=== PATIENT | male | born 1955 | race Caucasian/White ===

== ENCOUNTER 2016-12-13 01:07 | Emergency (ER) | payer MEDICAID ==
[2016-12-13 01:08] VITALS: BMI 34.9
[2016-12-13] MEDS ORDERED: OXYCODONE HCL 5 MG TABLET PO ONE (01:28)
--- NOTE | 2016-12-13 01:30 | EDPRACDOC ---
- General Information Chief Complaint: Ankle Pain Stated Complaint: FALL/RT ANKLE PAIN Time Seen by Provider: 12/13/16 01:25 Home Medications: Home Medications Oxycodone Immediate Release [Oxycodone Immediate Release (OxyIR)] 5 mg PO Q6H PRN #7 tab 04/21/14 Lisinopril [Prinivil] 5 mg PO DAILY 07/10/15 Oxycodone Immediate Release [Oxy-Ir] 5 mg PO Q6H PRN #8 tab 07/11/15 Diazepam [Valium] 5 mg PO TID #30 tablet 12/13/16 Oxycodone HCl/Acetaminophen [Percocet 10-325 mg Tablet] 1 each PO Q4 #30 tablet 12/13/16 Allergies/Adverse Reactions: Allergies Allergy/AdvReac Type Severity Reaction Status Date / Time celecoxib [From Celebrex] Allergy Anaphylaxis Verified 07/10/15 23:43 * - History of Present Illness HPI: PATIENT FELL AND TWISTED RIGHT ANKLE. STATES HIS KNEE JUST GAVE WAY. STATES HE DID NOT PASS OUT. NO LOC. NO HEAD OR NECK PAIN. HX OF PRIOR FRACTURE Ankle Problem Location: Reports: Right, Medial Mechanism: Reports: Eversion Circumstances: Reports: Fall Tetanus Up To Date?: Yes Able to Bear Weight: No Pain Severity: Reports: Moderate Associated Signs & Symptoms: Reports: Bruising, Swelling ED Past Medical History - History Reviewed Yes Nurses notes reviewed and agree except as marked Travel Outside of [place] in the Last 3 Months?: No - Patient Medical History Cardiac History: Reports: Hypertension Additional Past Medical History: Chronic Back Pain Surgical History: Reports: Other (BACK) - Social Medical History Smoking Status: Never smoker Lives With: Family Lives In: Home EDM Review of Systems - Review of Systems ROS Negative Except as Marked: Yes All systems reviewed and were negative except as marked Constitutional: No Symptoms Reported. negative: Fever, Chills, Weakness, Fatigue, Loss of Appetite Eyes: No Symptoms Reported. negative: Redness, Blurred Vision, Double Vision, Discharge, Pain, Light Sensitive, Photophobia Ears: No Symptoms Reported. negative: Pain, Hearing Loss, Drainage, Ear Pulling Throat: No Symptoms Reported. negative: Pain, Swelling Nose: No Symptoms Reported. negative: Congestion, Bleeding, Discharge, Injection, Swelling, Deformity, Ecchymosis, Tender, Abrasion, Laceration Mouth: No Symptoms Reported. negative: Pain, Drooling Respiratory: No Symptoms Reported. negative: Cough, Brassy Cough, Barky Cough, Shortness of Breath, Wheezing, Hemoptysis Cardiovascular: No Symptoms Reported. negative: Chest Pain, Palpitations, Syncope, Edema, Orthopnea, PND, Skin Mottling, Cyanosis Gastrointestinal: No Symptoms Reported. negative: Pain, Constipation, Nausea, Vomiting, Diarrhea, Melena, Formula Intolerance Genitourinary: No Symptoms Reported. negative: Dysuria, Hematuria, Frequency, Discharge, Bleeding, Testicular Pain, Neurological: No Symptoms Reported. negative: Headache, Dizziness, Seizure, Numbness, Weakness, Speech Difficulty, Gait Difficulty Musculoskeletal: Ankle. negative: Arm, Back, Chestwall, Elbow, Forearm, Femur, Foot, Hand, Hip, Knee, Leg, Neck, Pelvis, Ribs, Shoulder, Wrist Integumentary: No Symptoms Reported. negative: Itching, Rash, Bruising, Wound Allergic/Immunologic: No Symptoms Reported. negative: Hives, Itching Hematologic: No Symptoms Reported. negative: Lymphadenopathy, Easy Bruising, Easy Bleeding Endocrine: No Symptoms Reported. negative: Weight Gain, Weight Loss Psychiatric: No Symptoms Reported. negative: Anxiety, Depression, Hallucinations, Insomnia, Suicidal - Physical Exam Constitutional: Alert (Awake), Distress (MOERATE) Oriented to: Time, Person, Place Last recorded Vital Signs: Oxygen Pulse Oxygen Saturation O2 Device Oxygen Flow Rate Fraction of Inspired Oxygen ( FIO2) - HEENT Head: Normal ( normocephalic) Eye Exam: Normal (PERRL, EOMI, Sclera white) Oropharynx: Normal (Pharynx:Moist without exudate,Gums-no swelling) Tympanic Membrane: Normal ENT EAC: Normal TMJ: Normal Nose: No Symptoms Reported (septum midline) Neck: Normal (FROM, trachea at midline) - Respiratory/Cardiovascular Respiratory: Normal - CTA (BBS clear to auscultation without adventitious sounds ) Cardiovascular: Normal (RRR without murmur, gallop or rub) - GI Auscultation: Normal (NABS) Palpation: Normal (Soft,No rebound or guarding, non distended) Tenderness: Non tender Navarro's Sign: Negative - Bladder: Normal - Musculoskeletal Back: Normal (Non-Tender) Extremities: Other (SWELLING AND TENDERNESS JUST PROXIMAL TO MEDIAL MALLEOLUS RIGHT FOOT) - Integumentary Skin: Normal, Warm, Dry Lymphatics: Normal (no adenopathy) - Neurologic Memory Impaired: Normal Motor Function: Normal (Normal tone, Pulses 2+ No cyanosis or edema, FROM) Cranial Nerve: Normal (CN II-X11 intact sensation, strength 5/5) Cerebellar: Normal Mood Description: Normal Perception: Normal ED Procedures - Splinting 1st splint Location: RIGHT LEG Hand-Made Type: fiberglass Splint: posterior walking Pre-Proc Neuro Vasc Exam: normal Post-Proc Neuro Vasc Exam: normal Other Devices: Crutches 2nd splint Location: RIGHT ANKLE Hand-Made Type: fiberglass Splint: STIRRUP Pre-Proc Neuro Vasc Exam: normal Post-Proc Neuro Vasc Exam: normal Other Devices: Crutches Decision Time to Discharge: 02:02 - Departure Yes I personally saw and evaluated the patient. Disposition: Home Condition: Good Final Diagnosis: Trimalleolar fracture of ankle, closed Qualifiers: Encounter type: initial encounter Laterality: right Qualified Code(s): S82.851A - Displaced trimalleolar fracture of right lower leg, initial encounter for closed fracture Instructions: RICE: Routine Care for Injuries, Ankle Fracture (ED) Education/Counseling Given To: Patient Education/Counseling Given Regarding: Diagnosis, Treatment, Prognosis, Follow Up Referrals: None,No Provider [Primary Care Provider] - One Week David Mayo MD [Staff Physician] - One Week Prescriptions: Diazepam [Valium] 5 mg PO TID #30 tablet Oxycodone HCl/Acetaminophen [Percocet 10-325 mg Tablet] 1 each PO Q4 #30 tablet Additional Instructions: NO WEIGHT BEARING RIGHT FOOT
--- NOTE | 2016-12-13 01:59 | DIRPT ---
CLINICAL DATA: Status post fall, with right ankle pain. Initial encounter. EXAM: RIGHT ANKLE - COMPLETE 3+ VIEW COMPARISON: None. FINDINGS: There is a mildly displaced trimalleolar fracture, with lateral displacement of the distal fibular fragment, mild lateral displacement of the oblique medial malleolar fragment, and only minimal displacement of the posterior malleolar fragment. There is no evidence of talar dislocation. Mild lateral talar tilt is noted, with medial widening of the ankle mortise. Surrounding soft tissue swelling is noted. An os peroneum is seen. The subtalar joint is grossly unremarkable in appearance. IMPRESSION: 1. Mildly displaced trimalleolar fracture, with lateral displacement of the distal fibular fragment, mild lateral displacement of the oblique medial malleolar fragment, and only minimal displacement of the posterior malleolar fragment. Mild lateral talar tilt, with medial widening of the ankle mortise. 2. Os peroneum seen. Electronically Signed By: Jose Olmos M.D. On: 12/13/2016 01:57
[2016-12-13] MEDS ORDERED: HYDROmorphone 1 MG INJECTION ONE (02:01)
[2016-12-13] MEDS ORDERED: HYDROmorphone 1 MG INJECTION IM ONE (02:02)
[2016-12-13] MEDS ORDERED: DIAZEPAM 5 MG TAB PO ONE (02:48)
[2016-12-13 03:39] VITALS: BP 169/100; PULSE 76; TEMP 97.6
== END 2016-12-13 03:30 | disposition home or self-care (01) ==
LOC: ED 01:07
DX: S82.851A Displaced trimalleolar fracture of right lower leg, initial encounter for closed fracture (principal); X58.XXXA Exposure to other specified factors, initial encounter; Y93.9 Activity, unspecified
CPT/HCPCS: 29515; 73610; 96372; 99283; J1170; J3490

== ENCOUNTER 2016-12-23 10:40 | Day surgery (SDC) | payer MEDICAID ==
[~2016-12-23 10:40] MED LIST: DEXAMETHASONE 4 MG/ML VIAL IV ONE; FENTANYL 100 MCG/2 ML VIAL IV ONE; KETAMINE 50 MG/ML SYRINGE IV ONE; KETOROLAC TROMETH 30 MG/ML VIAL IM ONE; LIDOCAINE 100 MG PFS IV ONE; MIDAZOLAM 2 MG/2 ML VIAL IV ONE; MORPHINE 10 MG/ML INJECTION IM ONE; ONDANSETRON HCL 4 MG/2 ML VIAL IV ONE; PROPOFOL 200 MG/20 ML VIAL IV ONE
[2016-12-23] MEDS ORDERED: HYDROmorphone 1 MG INJECTION IV PRN ×2 (11:05)
[2016-12-23] MEDS ORDERED: PROMETHAZINE 25 MG/ML VIAL IV PRN ×2 (11:05)
[2016-12-23] MEDS ORDERED: ONDANSETRON HCL 4 MG/2 ML VIAL IV PRN (11:05)
[2016-12-23] MEDS ORDERED: MEPERIDINE 25 MG/ML TUBEX IV PRN (11:05)
[2016-12-23] MEDS ORDERED: FENTANYL 100 MCG/2 ML VIAL IV PRN (11:05)
[2016-12-23] MEDS ORDERED: ONDANSETRON HCL 4 MG ODT TAB PO PRN (11:05)
[2016-12-23] MEDS ORDERED: hydrALAZINE 20 MG/ML VIAL IV PRN (11:05)
[2016-12-23] MEDS ORDERED: LABETALOL 20 MG/4 ML SYRINGE IV PRN (11:05)
[2016-12-23] MEDS ORDERED: HYDROmorphone 1 MG INJECTION IV ONE (11:06)
[2016-12-23] MEDS ORDERED: BUPIVACAINE 0.25%-EPINEPHRINE 1:200,000 30 ML ONE (11:06)
--- NOTE | 2016-12-23 11:08 | SC.ANESPOS ---
[id number], Hemodynamically Stable, Pain Control Adequate Phase I & II Recovery Complete: Yes Apparent Anesthesia Complication: No : N - Vital Signs Blood Pressure: 151/89 Pulse: 97 Resp Rate: 20 O2 Sat: 95 Temp: 97.9 F
[2016-12-23] MEDS ORDERED: CEFAZOLIN 1 GM VIAL ONE ×2 (11:09)
--- NOTE | 2016-12-23 11:10 | HIM.ANES ---
Anesthesia Evaluation & Plan Diagnoses: DISPLACED TRIMALLEOLAR FRACTURE OF RIGHT LOWER LEG, INIT (12/23/16) - Focused Review of Systems Cardiac History: Yes: Hx Hypertension, Hx Cardiac Disorders, Hx Abnormal Cholesterol/Hyperlipidemia HEENT: No: Other HEENT Problems Respiratory: Yes: Hx Sleep Apnea Gastrointestinal: Yes: Hx Gastroesophageal Reflux Disease (No symptoms currently ), Hx Gastrointestinal Disorders, Hx Colonoscopy (AGE 56 POLYPECTOMY) Neurological/Musculoskeletal: Yes: Hx Back Pain, Hx Numbness, Tingling, Weakness in Arms & Legs (BLE/Hyperalgesia), Hx Neurological Disorders Other Neurological Problems: NEUROPATHY FROM KNEES DOWN.. PARASTHESIA BLE Psychological: No Hx Depression, Yes Hx Mental/Emotional Disorders HX Other Psyco/Soc Problems: INSOMNIA Blood/Autoimmune: Yes: Hx Anemia No: Hx AIDS, Hx Hepatitis (type) Smoking Status: Former smoker Hx Echocardiogram (date): Yes (12/17/16 EF 65%, MILD LVH, NO VALVE DISEASE) Hx Chest Xray (date): Yes (CT CHEST 12/16/16 MILD DEPENDANT ATELECTASIS) Surgical History: Yes: Appendectomy, Back (T12 REMOVAL 1991), Hip (BILATEAL HIP REPLACEMENT), Other (BACK) Other Surgical History: BILATERAL BIG TOE REMOVAL. FATTY TUMOR REMOVAL - Focused Physical Exam NPO since: after Midnight Mallampati: Class II Thyromental Distance: Greater than 3 Neck: Full Range of Motion Dental: Normal - no significant findings Cardiovascular/Chest: Normal Respiratory: Lungs clear Any problems with anesthesia, including nausea and vomiting?: No Any relatives with a history of Malignant Hyperthermia?: No Beta Law given (if appropriate): N/A Does the patient have a history of Motion Sickness-: No Other: Problem List Problem Status Onset Chronic hip pain Acute Drug reaction Acute Neuropathy Acute Trimalleolar fracture of ankle, closed Acute Allergies Allergy/AdvReac Type Severity Reaction Status Date / Time celecoxib [From Celebrex] Allergy Anaphylaxis Verified 12/22/16 18:00 * Home Medications Medication Instructions Recorded Last Taken Type Acetaminophen 650 mg PO Q4 PRN 12/22/16 Unknown History Clindamycin HCl [Cleocin HCl] 300 mg PO TID 12/22/16 Unknown History Famotidine 20 mg PO BID 12/22/16 Unknown History Furosemide [Lasix] 20 mg PO DAILY 12/22/16 Unknown History Hydralazine HCl 25 mg PO TID 12/22/16 Unknown History L.acidoph & Paracasei,B.lactis 1 each PO DAILY 12/22/16 Unknown History [Probiotic] Methocarbamol [Robaxin-750] 750 mg PO TID PRN 12/22/16 Unknown History Oxycodone HCl/Acetaminophen 1 tab PO Q4H PRN 12/22/16 Unknown History [Percocet 5-325 mg Tablet] Tamsulosin HCl [Flomax] 0.4 mg PO DAILY 12/22/16 Unknown History Height and Weight Patient's height 6 ft 5 in Patient's weight 300 lb BMI 34.9 - Anesthetic Plan Anesthesia Type: General ASA Class: 3 -: I have examined this patient and reviewed the medical record. The patient has been assessed prior to anesthesia. Risks and benefits of anesthesia and anesthetic technique options have been discussed and all questions answered. The patient accepts the risk and desires me to proceed with the planned anesthetic.
[2016-12-23] MEDS ORDERED: DIPHENHYDRAMINE 25 MG CAP PO PRN (11:32)
[2016-12-23] MEDS ORDERED: DIPHENHYDRAMINE 50 MG/ML VIAL IV PRN (11:32)
[2016-12-23] MEDS ORDERED: MAGNESIUM HYDROXIDE 30 ML BOTTLE PO PRN (11:32)
[2016-12-23] MEDS ORDERED: Aluminum;Magnesium;Simethicone 30 ML UDC PO PRN (11:32)
--- NOTE | 2016-12-23 11:38 | HIMOPRPT ---
DATE OF PROCEDURE: December 23, 2016 PREOPERATIVE DIAGNOSIS: Right trimalleolar ankle fracture dislocation POSTOPERATIVE DIAGNOSIS: Same. PROCEDURE: Open reduction and internal fixation of the right distal fibula and medial malleolus. FINDINGS: Fracture dislocation the right ankle with bony appearance of prior malunion verses chronic syndesmotic injury. Questionable neuroma involving the superficial peroneal nerve. SPECIMENS REMOVED: Portion of the distal superficial peroneal nerve sent for pathology. ESTIMATED BLOOD LOSS: 5 mL. ANESTHESIA: General. COMPLICATIONS: None. SURGEON: David Mayo M.D. VACUUM PAN TENDER: BECKY Mann TOURNIQUET TIME: 60 minutes at 250 mmHg. IMPLANTS: Include Nenzel very ax 4 hole distal fibula plate with 4-3.5 mm distal locking screws; 3-3.5 mm nonlocking screws proximally and 2-4.0 mm partially threaded cannulated screws medially.. SIGNIFICANT HISTORY, INDICATIONS, AND CONSENT: CAM is a 61-year-old male status post mechanical fall sustaining a right trimalleolar ankle fracture dislocation. Patient has been nonweightbearing with elevation and reports improvement in pain and swelling. Risks, benefits, and alternatives were discussed. With potential benefits of improved stabilization decreased likelihood of malunion, nonunion, and posttraumatic arthritis. Consent was obtained. OPERATION IN DETAIL: The patient was seen in the preop holding area. The right ankle was signed. Consent was reviewed. Questions were answered. H and P updated. SCD placed on the lower extremity. The patient was taken to the operating room, placed in supine position on the operating table. Anesthesia placed monitoring devices and performed LMA intubation. The right lower extremity was sterilely prepped and draped in usual orthopedic fashion, after tourniquet placed high on the right calf. A small bump was placed under the thigh in order to internally rotate the lower extremity. Time-out was performed. The patient received prophylactic antibiotics. Consensus was reached amongst participants in the OR suite. Esmarch was used to exsanguinate the limb. Tourniquet raised to 250 mmHg. Standard lateral approach to the distal fibula was made sharply through skin. Careful dissection deep was performed to identify the superficial peroneal nerve. With careful evaluation of the nerve there appeared to be a thickening of the distal portion consistent with possible neuroma. This bulbous and was sharply amputated and sent for pathology. Subperiosteal elevation with full-thickness anterior and posterior flaps were created subperiosteally to expose the fracture site, which was shortened and pushed laterally. The appearance of the distal fibula was questionable for prior malunion. After both fracture ends were cleaned of debris, we then performed an open reduction, with provisional fixation and found this to be an acceptable reduction on radiograph. Both AP and lateral views were used. Once this was reduced, we then provisionally placed an anterior to posterior lag screw and neutralization plate in standard fashion. With a neutralization plate in place, we initially fixed this with a bicortical screw proximally to bring the plate to the bone, and then fixed it distally with a unicortical locking screw. Again, radiographic confirmation of reduction was found to be acceptable and next, we began to place proximal and distal screws with a total of 4 locking distally and 3 nonlocking proximally. There were some degenerative changes near the syndesmotic ligaments consistent with possible old injury. Next, our attention was turned medially where a 4 cm longitudinal incision was made anteromedial about the ankle mortise. Sharp dissection was made through skin where the saphenous vein and nerve were identified and retracted. We then elevated soft tissue anteriorly and posteriorly off the subperiosteal bone. Fracture was identified and cleaned of debris with curettage and irrigation. An open reduction was performed and provisionally fixed with 2 guide pins from a medial to lateral direction in retrograde manner. Once this was found to be acceptably reduced restoring the mortise then reamed these and placed 55 mm 4.0 mm partially threaded cannulated screws. This reduced the fracture nicely. Mortise was found to be intact. We then stressed the syndesmosis with no obvious disruption of the syndesmotic ligaments and no gapping of the medial clear space. Implants again found to be in acceptable position on AP and lateral views. Our instruments were then removed. Incision site was thoroughly irrigated. A 0-Vicryl suture was used for deep closure to bring deep soft tissue over the plate. Tourniquet was released and hemostasis performed with Bovie cautery. A 2-0 Monocryl for subcutaneous closure and 3-0 nylon for skin. Sterile soft tissue dressing was placed. The patient was placed in a bulky posterior and stirrup splint, aroused by Anesthesia and taken to Postanesthesia Care Unit in stable condition. PLAN: The patient will be discharged home when okay with Anesthesia. Prescriptions will be given for p.r.n. pain, nausea, vomiting, and constipation. The patient will be nonweightbearing in the right lower extremity. Strict elevation was recommended while sitting. Early mobilization. Return to Clinic on postoperative day #10 for suture removal and wound check.
[2016-12-23] MEDS ORDERED: NALOXONE 0.4 MG/ML AMPULE IV SCH (12:00)
[2016-12-23] MEDS ORDERED: FENTANYL 100 MCG/2 ML VIAL ONE (14:01)
[2016-12-23] MEDS: FENTANYL 100 MCG/2 ML VIAL IV PRN ×2 (14:03→14:22)
[2016-12-23] MEDS: MORPHINE 2 MG/ML INJECTION IV PRN ×3 (15:11→20:12)
[2016-12-23] MEDS: CALCIUM CARBONATE + VITAMIN D 500 MG TAB PO SCH ×4 (15:44→17:11)
[2016-12-23] MEDS: PROBIOTIC BLEND TAB PO SCH (15:44)
[2016-12-23] MEDS: VITAMINS, MULTIPLE CAP PO SCH (15:44)
[2016-12-23] MEDS: CLINDAMYCIN 150 MG CAP PO SCH ×2 (15:45→21:21)
[2016-12-23] MEDS: hydrALAZINE 25 MG TAB PO SCH ×2 (15:45→21:21)
[2016-12-23] MEDS: SODIUM CHLORIDE 0.9% 3 ML FLUSH FLUSH SCH (15:47)
[2016-12-23] MEDS ORDERED: Vaccine Screening Complete SCH (16:00)
[2016-12-23] MEDS: Cefazolin 2gm/50 ml D5W 2 GM/50 ML RTU IV SCH (17:11)
[2016-12-23] MEDS: PANTOPRAZOLE 40 MG TAB PO SCH (17:11)
[2016-12-23] MEDS: ACETAMINOPHEN 325 MG/TAB TABLET PO PRN (17:16)
[2016-12-23] MEDS: FAMOTIDINE 20 MG TAB PO SCH (20:12)
[2016-12-23] MEDS: DOCUSATE-SENNA CONCENTRATE TAB PO SCH (20:12)
[2016-12-23] MEDS: OXYCODONE HCL 5 MG TABLET PO PRN (21:20)
[2016-12-23] MEDS: METHOCARBAMOL 500 MG TAB PO PRN (21:33)
[2016-12-24] MEDS: MORPHINE 2 MG/ML INJECTION IV PRN ×8 (00:29→20:19)
[2016-12-24] MEDS: ACETAMINOPHEN 325 MG/TAB TABLET PO PRN ×6 (00:29→22:32)
[2016-12-24] MEDS: OXYCODONE HCL 5 MG TABLET PO PRN ×6 (01:50→22:28)
[2016-12-24] MEDS: Cefazolin 2gm/50 ml D5W 2 GM/50 ML RTU IV SCH ×2 (02:10→09:54)
[2016-12-24] MEDS: SODIUM CHLORIDE 0.9% 3 ML FLUSH FLUSH SCH ×2 (04:10→18:36)
[2016-12-24] MEDS: METHOCARBAMOL 500 MG TAB PO PRN (05:20)
[2016-12-24] MEDS: CLINDAMYCIN 150 MG CAP PO SCH ×3 (05:46→20:31)
[2016-12-24] MEDS: hydrALAZINE 25 MG TAB PO SCH ×3 (05:46→20:31)
[2016-12-24] MEDS: PANTOPRAZOLE 40 MG TAB PO SCH ×2 (05:46→18:35)
[2016-12-24] MEDS ORDERED: FLU VACCINE (Afluria) 0.5 ML DOSE IM ONE (08:00)
--- NOTE | 2016-12-24 08:09 | PCM.ORTHBL ---
- Subjective Hospital Day #: 2 Post Op Day: 1 (S/P R ankle ORIF) Daily Assessment - Patient: Reports: Still having pain, Tolerating Regular Diet , Afebrile - Objective / Physical Exam Vital Signs: Temperature: 98.4 F (12/24/16 05:30) HR: 82 (12/24/16 05:30)RR: 20 (12/24/16 05: 30) BP: 145/69 (12/24/16 05:30)Pulse Ox: 97 (12/24/16 05:30) General: Alert, Oriented x3, Cooperative, No acute distress, Obese Musculoskeletal / Extremities: Splint in place, Dressing Clean/Dry/Intact, Swelling, Capillary Refill, Other (Compartments soft and compressible with passive ROM of toes without significant pain when distracted.) Neurological: Positive Sensation First Dorsal Web Space, Sensation to light touch intact, Extensor Hallicus Longus Intact, Flexor Hallicus Longus Intact Skin: Warm,Dry and Intact - Assessment and Plan (1) Trimalleolar fracture of ankle, closed Acute S82.853A - DISPLACED TRIMALLEOLAR FRACTURE OF UNSP LOWER LEG, INIT Present on Admission: Yes initial encounter right F S82.851A - Displaced trimalleolar fracture of right lower leg, initial encounter for closed fracture Comment/Plan: POD #1 s/p R ankle bi mal ORIF. Nurse notified of patient with increased pain this morning. No signs of active compartment syndrome at this time. Continue elevation and NWB RLE. Possible d/c home this afternoon if doing better with home health.
--- NOTE | 2016-12-24 08:11 | PCM.DCS92 ---
Discharge Disposition: Home Cognitive Discharge Status: Unimpaired Fuctional Discharge Status: Walker Assistance, Deconditioning, Post-op Weakness Diet at Discharge: As Tolerated Activity: Other (see below) (as tolerated. RUY RAMIREZ) Call Office For: Worsening Symptoms, Wound is Draining Pus, Fever over 101 F, Fever over 100.5, Wound is Painful, Wound is Red, Weight Gain (see below), Pain Uncontrolled By Meds, Other (See Details) Discontinue use of:: Alcohol, All Illegal Substances, All Types of Tobacco - DC Summary Notes Hospital Course Note:: Discharge summary on patient named ALVIN MENDOSA admitted to [facility] on by . Date of discharge is December 24, 2016. HPI: 61-year-old male status post mechanical fall sustaining a right trimalleolar ankle fracture dislocation. Hospital course: Patient was taken to the operating room on December 23, 2016 for open reduction internal fixation of right trimalleolar ankle fracture. Patient was transferred postoperatively to the floor with pain control being difficult for the 1st hour postoperatively. Patient was able to obtain adequate pain control after both IV and oral pain medication was administered. On postoperative day 1 was some concern by the nursing staff that the patient may have symptoms of compartment syndrome. Patient was urgently evaluated at bedside revealing compressible compartments anteriorly, laterally, and medially. Patient had minimal pain with passive stretch of the toes and ankle. Patient described a neuropathic type pain which he has chronically with diminished sensation throughout the foot and leg on a usual basis. Patient also reports history of multiple ankle fractures treated conservatively prior to this procedure. Patient with improved pain at bedside and agreeable to discharge home in the afternoon with pain improving. Operations-procedures: Right trimalleolar ankle fracture open reduction internal fixation-December 23, 2016. Disposition: Patient will be discharged home in the care of family. He will remain nonweightbearing right lower extremity. Strict right lower extremity elevation at heart level while sitting. Recommend aspirin 325 mg 1 tab p.o. every day times 14 days. Colace 100 mg p.o. b.i.d.; oxycodone 5 mg 1-2 tabs p.o. q.4 hours as needed for pain were provided at clinic. Return to clinic postop day 10 for suture removal and wound check. <David Mayo - Last Filed: 12/24/16 08:08> - Final/Secondary Discharge Diagnosis (1) Trimalleolar fracture of ankle, closed Acute S82.853A - DISPLACED TRIMALLEOLAR FRACTURE OF UNSP LOWER LEG, INIT Present on Admission: Yes initial encounter right F S82.851A - Displaced trimalleolar fracture of right lower leg, initial encounter for closed fracture Discharge Home Medication List Acetaminophen 650 mg PO Q4 PRN 12/22/16 [History Confirmed 12/23/16 Last Taken 12/22/16 10:00] Clindamycin HCl [Cleocin HCl] 300 mg PO TID 12/22/16 [History Confirmed Last Taken 12/22/16 21:00] Famotidine 20 mg PO BID 12/22/16 [History Confirmed 12/23/16 Last Taken 08:00] Furosemide [Lasix] 20 mg PO DAILY 12/22/16 [History Confirmed 12/23/16 Last Taken 12/22/16 10:00] Hydralazine HCl 25 mg PO TID 12/22/16 [History Confirmed 12/23/16 Last Taken 08:00] L.acidoph & Paracasei,B.lactis [Probiotic] 1 each PO DAILY 12/22/16 [History Confirmed 12/23/16 Last Taken 12/22/16 14:00] Methocarbamol [Robaxin-750] 750 mg PO TID PRN 12/22/16 [History Confirmed Last Taken 12/22/16 10:00] Oxycodone HCl/Acetaminophen [Percocet 5-325 mg Tablet] 1 tab PO Q4H PRN [History Confirmed 12/23/16 Last Taken 12/22/16 10:00] Tamsulosin HCl [Flomax] 0.4 mg PO DAILY 12/22/16 [History Confirmed 12/23/16 Last Taken 12/23/16 07:00] Oxycodone Immediate Release [Oxycodone Immediate Release (OxyIR)] 5 mg PO Q4H PRN #30 tablet 12/24/16 [Rx Last Taken Unknown] - DC Summary Notes Hospital Course Note:: Discharge summary on patient named ALVIN MENDOSA admitted to [facility] on by . Date of discharge is 12/25/2016 <Sudhakar Domingo - Last Filed: 12/25/16 10:01> Discharge Condition: Stable Physician Follow up/Referrals: David Mayo MD [Staff Physician] - Listed Time Home Medications/ New Prescriptions: New Oxycodone Immediate Release [Oxycodone Immediate Release (OxyIR)] 5 mg PO Q4H PRN #30 tablet PRN Reason: moderate to severe pain Continue Oxycodone HCl/Acetaminophen [Percocet 5-325 mg Tablet] 1 tab PO Q4H PRN PRN Reason: Pain Acetaminophen 650 mg PO Q4 PRN PRN Reason: Pain Methocarbamol [Robaxin-750] 750 mg PO TID PRN PRN Reason: Muscle Cramps Hydralazine HCl 25 mg PO TID Furosemide [Lasix] 20 mg PO DAILY Famotidine 20 mg PO BID Clindamycin HCl [Cleocin HCl] 300 mg PO TID Tamsulosin HCl [Flomax] 0.4 mg PO DAILY L.acidoph & Paracasei,B.lactis [Probiotic] 1 each PO DAILY Wound Care Surgical Site: Yes <David Mayo - Last Filed: 12/24/16 08:08> Medical Equipment (Order must still be written on paper): Walker Medication Instructions: Take Stool Softener, Rx Given at Clinic Continue Ice Packs/Ice Machine to Operative Area: Yes Activity as Tolerated: Yes Weight Bearing: None (Nonweightbearing right lower extremity) Current Dressing: Splint Dressing Care: Keep Wound Clean & Dry, Do Not Change Dressing <David Mayo - Last Filed: 12/24/16 08:08> - Physical Exam Vital Signs: Initial Vitals Temperature 98.0 F 12/23/16 11:05 Pulse Rate 89 12/23/16 11:05 Respiratory Rate 18 12/23/16 11:05 Blood Pressure 158/90 12/23/16 11:05 Pulse Oxygen Saturation 97 12/23/16 11:05 <David Mayo - Last Filed: 12/24/16 08:08> - Physical Exam Vital Signs: Initial Vitals Temperature 98.0 F 12/23/16 11:05 Pulse Rate 89 12/23/16 11:05 Respiratory Rate 18 12/23/16 11:05 Blood Pressure 158/90 12/23/16 11:05 Pulse Oxygen Saturation 97 12/23/16 11:05 <Sudhakar Domingo - Last Filed: 12/25/16 10:01>
[2016-12-24] MEDS: FUROSEMIDE 20 MG TAB PO SCH (08:16)
[2016-12-24] MEDS: TAMSULOSIN HCL 0.4 MG CAP PO SCH (08:16)
[2016-12-24] MEDS: FAMOTIDINE 20 MG TAB PO SCH ×2 (08:17→20:31)
[2016-12-24] MEDS: CALCIUM CARBONATE + VITAMIN D 500 MG TAB PO SCH ×2 (11:13→18:35)
[2016-12-24] MEDS: VITAMINS, MULTIPLE CAP PO SCH (11:13)
[2016-12-24] MEDS: PROBIOTIC BLEND TAB PO SCH (11:13)
[2016-12-24] MEDS: DOCUSATE-SENNA CONCENTRATE TAB PO SCH (20:31)
[2016-12-25] MEDS: MORPHINE 2 MG/ML INJECTION IV PRN ×4 (00:28→11:28)
[2016-12-25] MEDS: OXYCODONE HCL 5 MG TABLET PO PRN ×2 (05:37→10:00)
[2016-12-25] MEDS: ACETAMINOPHEN 325 MG/TAB TABLET PO PRN ×2 (05:38→10:00)
[2016-12-25] MEDS: hydrALAZINE 25 MG TAB PO SCH (05:39)
[2016-12-25] MEDS: CLINDAMYCIN 150 MG CAP PO SCH (05:42)
[2016-12-25] MEDS: SODIUM CHLORIDE 0.9% 3 ML FLUSH FLUSH SCH (05:44)
[2016-12-25] MEDS: PANTOPRAZOLE 40 MG TAB PO SCH (05:44)
[2016-12-25 06:57] VITALS: BP 175/98; PULSE 78; TEMP 97.7
[2016-12-25 06:59] VITALS: BMI 37.7
[2016-12-25] MEDS: FAMOTIDINE 20 MG TAB PO SCH (08:08)
[2016-12-25] MEDS: TAMSULOSIN HCL 0.4 MG CAP PO SCH (08:08)
[2016-12-25] MEDS: FUROSEMIDE 20 MG TAB PO SCH (08:09)
[2016-12-25] MEDS: CALCIUM CARBONATE + VITAMIN D 500 MG TAB PO SCH (10:02)
[2016-12-25] MEDS: PROBIOTIC BLEND TAB PO SCH (10:02)
[2016-12-25] MEDS: VITAMINS, MULTIPLE CAP PO SCH (10:02)
--- NOTE | 2016-12-25 10:05 | PCM.ORTHBL ---
- Subjective Hospital Day #: 3 Post Op Day: 2 (S/P R ankle ORIF) Daily Assessment - Patient: Reports: No new complaints, Awake Alert Oriented x4 , Pain is less, Tolerating Regular Diet - Objective / Physical Exam Vital Signs: Temperature: 97.7 F (12/25/16 06:56) HR: 78 (12/25/16 06:56)RR: 18 (12/25/16 06: 56) BP: 175/98 (12/25/16 06:56)Pulse Ox: 98 (12/25/16 06:56) General: Alert, Oriented x3, Cooperative, No acute distress, Obese Musculoskeletal / Extremities: Splint in place, Capillary Refill Neurological: Positive Sensation First Dorsal Web Space, Sensation to light touch intact, Extensor Hallicus Longus Intact, Flexor Hallicus Longus Intact - Assessment and Plan (1) Trimalleolar fracture of ankle, closed Acute S82.853A - DISPLACED TRIMALLEOLAR FRACTURE OF UNSP LOWER LEG, INIT Present on Admission: Yes initial encounter right F S82.851A - Displaced trimalleolar fracture of right lower leg, initial encounter for closed fracture Comment/Plan: POD #2 s/p R ankle ORIF doing better. Pain improved today with no signs of compartment syndrome. Plan for d/c home today. RUY RLE with AD. Follow up as scheduled with Dr. brown in clinic. Rx given in clinic.
[2016-12-25] MEDS ORDERED: MORPHINE 2 MG/ML INJECTION IV PRN (11:24)
== END 2016-12-25 13:00 | disposition home or self-care (01) ==
LOC: SDC 10:40 → MPS3 14:55 → SDC 12-24 21:18 → MPS3 12-24 21:18 → SDC 12-25 13:00
PROVIDERS: ATTEND Orthopaedic Surgery
PROC: 0QSJ04Z Reposition Right Fibula with Internal Fixation Device, Open Approach (ICD-10-PCS; 2016-12-23)
PROC: 0QSG04Z Reposition Right Tibia with Internal Fixation Device, Open Approach (ICD-10-PCS; principal; 2016-12-23 11:30)
DX: S82.851A Displaced trimalleolar fracture of right lower leg, initial encounter for closed fracture (principal); I10 Essential (primary) hypertension; E78.5 Hyperlipidemia, unspecified; G47.30 Sleep apnea, unspecified; K21.9 Gastro-esophageal reflux disease without esophagitis; G62.9 Polyneuropathy, unspecified; G47.00 Insomnia, unspecified; Z87.891 Personal history of nicotine dependence; Z79.899 Other long term (current) drug therapy; X58.XXXA Exposure to other specified factors, initial encounter
CPT/HCPCS: 27822; J0690; J1100; J1885; J2001; J2250; J2270; J2405; J3010; J3490; 90656; 97161